=== PATIENT | male | born 1995 | race Caucasian/White ===

== ENCOUNTER 2017-12-06 12:37 | Emergency (ER) | payer SELFPAY ==
[~2017-12-06] VITALS: Ht 180.3 cm; Wt 70.7 kg
[~2017-12-06 12:37] MED LIST: ATARAX,VISTARIL25 MG PO; MOBIC7.5 MG PO; MOTRIN800 MG PO
[2017-12-06 13:07] LABS: HEMATOCRIT 43.5 % (38.0-50.0); HEMOGLOBIN 15.5 G/DL (12.5-16.6); MCH 31.3 PG (29.0-34.0); MCHC 35.6 G/DL (30.0-36.0); MCV 87.9 FL (86-99); PLATELET COUNT 329 K/uL (156-360); RBC DIS.WIDTH-CV 12.1 % (11.8-14.6); RBC DIS.WIDTH-SD 39.3 % (39-53); RED BLOOD COUNT 4.95 M/uL (4.00-5.50); WHITE BLOOD COUNT 9.1 K/uL (4.1-10.2)
[2017-12-06 13:20] LABS: CHLORIDE 104 mEq/L (99-109); POTASSIUM 4.2 mEq/L (3.7-5.4); SODIUM 141 mEq/L (136-147)
[2017-12-06 13:21] LABS: GLUCOSE 140 mg/dL (70-99)
[2017-12-06 13:25] LABS: CREATININE 1.3 mg/dL (0.6-1.3); GFR ESTIMATE (CALCULATED) > 59 mL/min/ (58.99-99999)
[2017-12-06 13:26] LABS: UREA NITROGEN (BUN) 18 mg/dL (9-23)
[2017-12-06 16:30] VITALS: BP 141/82
== END 2017-12-06 16:31 | disposition home or self-care (01) ==
LOC: EME 12:37
DX: R00.0 Tachycardia, unspecified (principal); F41.9 Anxiety disorder, unspecified
CPT/HCPCS: 71046; 80048; 85027; 93005

== ENCOUNTER 2017-12-13 09:03 | Emergency (ER) | payer SELFPAY ==
[~2017-12-13] VITALS: Ht 154.9 cm; Wt 75.0 kg
[2017-12-13 09:48] LABS: HEMATOCRIT 41.9 % (38.0-50.0); HEMOGLOBIN 14.9 G/DL (12.5-16.6); MCH 31.3 PG (29.0-34.0); MCHC 35.6 G/DL (30.0-36.0); PLATELET COUNT 263 K/uL (156-360); RBC DIS.WIDTH-CV 12.8 % (11.8-14.6); RBC DIS.WIDTH-SD 41.6 % (39-53); RED BLOOD COUNT 4.76 M/uL (4.00-5.50); WHITE BLOOD COUNT 7.3 K/uL (4.1-10.2)
[2017-12-13 09:55] LABS: CHLORIDE 103 mEq/L (99-109); POTASSIUM 5.3 mEq/L (3.7-5.4); SODIUM 136 mEq/L (136-147)
[2017-12-13 09:56] LABS: MAGNESIUM 2.3 mg/dL (1.3-2.7)
[2017-12-13 09:57] LABS: GLUCOSE 140 mg/dL (70-99)
[2017-12-13 10:01] LABS: GFR ESTIMATE (CALCULATED) > 59 mL/min/ (58.99-99999)
[2017-12-13 10:02] LABS: UREA NITROGEN (BUN) 17 mg/dL (9-23)
[2017-12-13 10:58] VITALS: BP 131/72
[2017-12-13 11:20] LABS: THYROTROPIN (TSH) 1.1 MIU/L (0.4-5.5)
== END 2017-12-13 10:59 | disposition home or self-care (01) ==
LOC: EME 09:03
PROVIDERS: Emergency Medicine
DX: R00.2 Palpitations (principal)
CPT/HCPCS: 80048; 83735; 84443; 85027; 93005; 99281; 99283